=== PATIENT | male | born 1970 | race Two or more races ===

== ENCOUNTER 2023-08-01 07:00 | Day surgery (SDC) | payer OTHER ==
[2023-07-24 08:52] LABS: HEMATOCRIT 48.2 % (39.0-48.0); HEMOGLOBIN 16.7 g/dL (13-16.00); MEAN CELL VOLUME 91.7 fL (80.0-100.00); MEAN CORPUSCULAR HEMOGLOBIN 31.7 pg (27.00-32.0); MEAN CORPUSCULAR HGB CONC 34.6 g/dl (32.0-36.0); PLATELET COUNT 187 K/uL (150-450); RED BLOOD COUNT 5.26 M/uL (4.00-6.00)
[2023-07-24 08:54] LABS: URINE APPEARANCE Clear; URINE BILIRRUBIN Negative (NEGATIVE); URINE BLOOD Negative; URINE COLOR Dark Yellow; URINE GLUCOSE Negative (NEGATIVE); URINE LEUKOCYTE Negative; URINE NITRATE Negative; URINE PROTEIN Negative (NEGATIVE); URINE UROBILINOGEN 0.2 E.U./dl
[2023-07-24 08:58] LABS: URINE BACTERIA 17.6 uL (0.0-1933); URINE EPITHELIAL CELLS 3.7 uL (0.0-38.8); URINE RBC 5.8 uL (0.0-20.8); URINE WBC 5.2 uL (0.0-23.2)
[2023-07-24 09:32] LABS: ALBUMIN 4.3 gm/dL (3.4-5.0); BILIRUBIN TOTAL 1.28 mg/dL (0.3-1.2); CALCIUM 9.8 mg/dL (8.5-10.1); CREATININE SERUM 0.93 mg/dL (0.70-1.30); GFR 85.32; GLOBULINA 3.2 G/DL (2.4-3.5); POTASSIUM 3.95 mEq/L (3.5-5.1); TOTAL PROTEIN 7.5 gm/dL (6.4-8.2)
[2023-07-24 10:09] LABS: INR 1.04; PARTIAL THROMBOPLASTIN TIME 30.2 SECONDS (22.0-34.0); PROTHROMBIN TIME 10.9 SECONDS (9.0-11.5)
[2023-08-01] MEDS ORDERED: CEFAZOLIN SODIUM 1,000 MG VIAL ONE (08:41)
[2023-08-01] MEDS ORDERED: TYLENOL ARTHRI650 MG PO (09:00)
[2023-08-01] MEDS ORDERED: KETO10TA2 PO (09:00)
[2023-08-01] MEDS ORDERED: MIRALAX17 GM PO (09:00)
[2023-08-01] MEDS ORDERED: TRAMADOL HCL50 MG PO (09:00)
[2023-08-01] MEDS ORDERED: BUPIVACAINE HCL/PF 0.5% 30ML ML ONE (09:57)
[2023-08-01] MEDS ORDERED: CEFAZOLIN SODIUM 1,000 MG VIAL IV ONE (10:15)
[2023-08-01] MEDS ORDERED: BUPIVACAINE HCL 30 ML VIAL IJ ONE (10:30)
[2023-08-01] MEDS ORDERED: KETOROLAC TROMETHAMINE 30 MG VIAL ONE (11:32)
[2023-08-02] MEDS ORDERED: KETOROLAC TROMETHAMINE 30 MG VIAL IJ ONE (12:30)
== END 2023-08-01 13:55 | disposition home or self-care (01) ==
LOC: CIR.AMB 07:00
PROVIDERS: ATTEND Surgery
DX: K40.90 Unilateral inguinal hernia, without obstruction or gangrene, not specified as recurrent (principal); K42.0 Umbilical hernia with obstruction, without gangrene; I10 Essential (primary) hypertension
CPT/HCPCS: 49650; 49592; C1781